=== PATIENT | male | born 2005 | race Hispanic/Latino ===

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

== ENCOUNTER 2024-12-01 15:25 | Emergency (ER) | payer BC ==
[~2024-12-01] VITALS: Ht 177.8 cm; Wt 159.4 kg
[~2024-12-01 15:25] MED LIST changes: +AMOX500C2 PO; +IBUP-1492 PO; +PRED20TA3 PO
[2024-12-01] MEDS ORDERED: TOBR5DRO67 OP (15:38)
--- NOTE | 2024-12-01 15:39 | ERN ---
General Chief Complaint: Eye Problems Stated Complaint: STYE Time Seen by MD: 15:27 Time Seen by Midlevel: 15:27 Source: patient History of Present Illness Initial Comments 19-year-old male presents to the ER with a stye to his right eye that has popped. Denies any other symptoms. Allergies: Coded Allergies: No Known Allergies (Unverified Allergy, Unknown, 05/13/22) Home Meds Active Scripts Prednisone (Prednisone) 20 Mg Tablet, 1 TAB PO AD for 2 Days, #4 TAB 0 Refills TAKE 2 TAB BY MOUTH ONCE A DAY X2 DAYS Prov:LUIS A HAYNES MD 07/27/23 Ibuprofen (Ibuprofen) 600 Mg Tablet, 600 MG PO Q6H PRN for PAIN, #30 TAB 1 Refill Prov:LUIS A HAYNES MD 07/27/23 Amoxicillin (Amoxicillin) 500 Mg Capsule, 500 MG PO BID, #20 CAP 0 Refills Prov:LUIS A HAYNES MD 07/27/23 Acetaminophen with Codeine (Acetaminophen-Cod #3 Tablet) 1 Each Tablet, 1 EACH PO TID for pain, #15 TAB 0 Refills Prov:DARVIN COPE MD 08/08/20 Ciprofloxacin HCl/Dexameth (Ciprodex Otic Suspension) 7.5 Ml Drops.susp, 5 ML OT TID for 6 Days, #3 DROP 0 Refills Prov:DARVIN COPE MD 08/08/20 Past Medical History Past Medical History: No Pertinent History Past Surgical History: Other Surgical History Other: TESTICULAR SX Family History Family History: Negative Social History Social History: Negative ROS Dictation CONSTITUTIONAL: Negative except for HPI HEAD/FACE: Negative except for HPI EENT: Negative except for HPI RESPIRATORY: Negative except for HPI GASTROINTESTINAL/ABDOMINAL: Negative except for HPI GENITOURINARY: Negative except for HPI MUSCULOSKELETAL: Negative except for HPI INTEGUMENTARY: Negative except for HPI NEUROLOGICAL/PSYCH: Negative except for HPI HEMATOLOGIC/LYMPHATIC: Negative except for HPI All Systems Negative, Except as noted above. 13 point review of systems assessed and all negative except for above. Physical Exam Physical Exam Dictation PHYSICAL EXAM: GENERAL: alert,, awake oriented x 3 HEENT: EOMI, Sclera non icteric, moist mucosa, hordeolum to right lower eyelid NECK: Supple, no JVD, trachea midline LUNGS: Clear breath sounds bilaterally. No wheezes HEART: Regular rate and rhythm. Normal S1 and S2, without murmurs ABD: Abdomen soft, nontender. Bowel sounds present EXT: No clubbing or cyanosis, NEURO: Alert and oriented to person, follows commands MDM MDM: Differential diagnosis: Conjunctivitis, stye There are no social concerns with this patient. Prescription drug management Prescriptions will include: TobraDex Medical management and examination interpretation discussions were had by me with other qualified healthcare professionals as indicated for the patient's care. ED Course Orders Procedure Category Date Status Time Tobramycin PHA 12/01/24 In Process Sulf/Dexamethasone 16:00 Current Medications Medications (Trade) Dose Ordered Sig/Brian Route PRN Reason Start Time Stop Time Status Last Admin Dose Admin Tobramycin/ Dexamethasone (TobraDEX EYE DROPS) 2 drop ONCE OD 12/01/24 16:00 12/31/24 15:59 Vital Signs Date Time Temp Pulse Resp B/P (MAP) Pulse Ox O2 Delivery O2 Flow Rate FiO2 12/01/24 15:28 98.2 87 16 139/77 97 Room Air DX & DISP Disposition: Discharge Departure Impression: Primary Impression: Hordeolum externum of right lower eyelid Condition: Stable Scripts Tobramycin/Dexamethasone (Tobradex St Eye Drops) 0.3 %-0.05 % Drops.susp 1 DROP OP BID for 5 Days, #5 ML 0 Refills Prov: ORALIA PAYAN PAC 12/01/24 Referrals: SELF,REFERRAL (PCP) Time of Disposition: 15:37 I have reviewed the case, and I agree with, Diagnosis and Plan I performed the substantive portion of the visit. I have reviewed and personally made and approve the management plan that is documented in the note by myself or the JASKARAN. I acknowledge for responsibility for the patient's management plan. ORALIA PAYAN PAC Dec 01, 2024 15:39
[2024-12-01 16:12] VITALS: BP 135/75; PULSE 82; RESP 16; TEMP 98.2; O2SAT 98
== END 2024-12-01 16:18 | disposition home or self-care (01) ==
LOC: EDH 15:25
DX: H00.012 Hordeolum externum right lower eyelid (principal); Z79.891 Long term (current) use of opiate analgesic
CPT/HCPCS: 99283